=== PATIENT | male | born 1975 | race Caucasian/White ===

== ENCOUNTER 2016-09-18 12:46 | Emergency (ER) | payer BC ==
[2016-09-18 13:10] LABS: HEMATOCRIT 38.9 % (38.0-50.0); MCH 31.1 PG (29.0-34.0); MCHC 30.6 G/DL (30.0-36.0); MCV 101.6 FL (86-99); MEAN PLAT.VOLUME 10.4 uM^3 (9.0-12.4); NRBC (%) 0.9 /100 WBC (0-0); PLATELET COUNT 133 K/uL (156-360); RBC DIS.WIDTH-CV 12.1 % (11.8-14.6); RBC DIS.WIDTH-SD 45.3 % (39-53); RED BLOOD COUNT 3.83 M/uL (4.00-5.50); WHITE BLOOD COUNT 12.7 K/uL (4.1-10.2)
[2016-09-18 13:20] LABS: INTER. NORMALIZED RATIO 1.2; PROTHROMBIN TIME 12.5 (9.2-11.2); PTT 53.2 (25-32)
[2016-09-18 13:22] LABS: AMYLASE 33 IU/L (1-118); CHLORIDE 106 mEq/L (99-109); POTASSIUM 4.7 mEq/L (3.7-5.4); SODIUM 148 mEq/L (136-147)
[2016-09-18 13:24] LABS: GLUCOSE 325 mg/dL (70-99)
[2016-09-18 13:25] LABS: ANION GAP 29 MEQ/L (2-14)
[2016-09-18 13:27] LABS: SERUM ETHYL ALCOHOL < 10 mg/dL
[2016-09-18 13:28] LABS: UREA NITROGEN (BUN) 12 mg/dL (9-23)
[2016-09-18 13:30] LABS: GFR ESTIMATE (CALCULATED) 47 mL/min/
[2016-09-18 13:31] LABS: LIPASE 30 U/L (1.0-51.0)
[2016-09-18 13:37] LABS: TROP-I INTERPRETATION POSITIVE; TROPONIN-I 3.93 ng/mL (0.0-0.30)
[2016-09-18 14:00] LABS: ABS NEUTROPHIL COUNT 6.5; ATYPICAL LYMPHOCYTE 2.9 %; BAND NEUTROPHILS 5.8 % (0-8.0); EOSINOPHIL ABS CT 0.2; EOSINOPHILS 1.9 % (0-5.0); LYMPHOCYTES 33.6 % (15.0-45.0); METAMYELOCYTES 4.8 %; PLAT.SUFFICIENCY DECREASED; SEG.NEUTROPHILS 45.2 % (46.0-76.0)
== END 2016-09-18 18:14 ==
LOC: EME 12:46
PROVIDERS: Emergency Medicine
DX: I46.9 Cardiac arrest, cause unspecified (principal)
CPT/HCPCS: 80048; 81003; 82150; 83605; 83690; 84484; 85025; 85610; 85730; 86900; 86901; 87040; 87801; 99281; 99285; G0480; J0171; J0282